=== PATIENT | female | born 1965 | race Caucasian/White ===

== ENCOUNTER 2017-06-18 10:23 | Inpatient (IN) | payer MEDICAID, OTHER ==
[~2017-06-18] VITALS: Ht 172.7 cm; Wt 62.9 kg
[2017-06-18] MEDS ORDERED: SODIUM CHLORIDE 0.9% 1,000 ML IVB ONE (10:51)
[2017-06-18 11:11] LABS: Basophils # (auto) 0 uL; Basophils % (auto) 0.7 % (0.0-2.0); Eosinophils # (auto) 0.1 uL; Eosinophils % (auto) 1.9 % (0.0-7.0); Hematocrit 44.4 % (36.0-46.0); Hemoglobin 14.9 g/dL (12.2-16.2); Lymphocytes # (auto) 2.2 uL; Lymphocytes % (auto) 42.1 % (10.0-50.0); Mean Corpuscular Hemoglobin 31.1 pg (28.0-32.0); Mean Corpuscular Hgb Conc. 33.6 g/dL (32.0-36.0); Mean Corpuscular Volume 92.5 fL (80.0-100.0); Monocytes # (auto) 0.5 uL; Monocytes % (auto) 8.7 % (0.0-12.0); Neutrophils # (auto) 2.5 uL; Neutrophils % (auto) 46.6 % (37.0-80.0); Platelet Count (auto) 196 10^3/uL (140-450); Red Cell Distribution Width 14.3 % (11.8-14.3); White Blood Cell 5.3 10^3/uL (4.4-10.8)
[2017-06-18 11:34] LABS: Magnesium 2.2 mg/dL (1.6-2.6)
[2017-06-18 11:39] LABS: Albumin 4.3 g/dL (3.4-5.0); BUN/Creatinine Ratio 13.3; Bilirubin, Total 0.4 mg/dL (0.2-1.0); Calcium 9.4 mg/dL (8.5-10.1); Potassium 4.1 mmol/L (3.5-5.1); Total Protein 8.6 g/dL (6.4-8.2)
[2017-06-18] MEDS: SODIUM CHLORIDE 0.9% 1,000 ML IV SCH ×2 (12:41→22:09)
[2017-06-18] MEDS ORDERED: ALBUTEROL SULF 2.5 MG/0.5ML(0.5%) NEB SOLN NEB PRN (12:45)
[2017-06-18] MEDS ORDERED: PROMETHAZINE HCL 25 MG/ML 1ML IV PRN (12:45)
[2017-06-18] MEDS ORDERED: HYDROcodone-ACET 5/325MG TAB PO PRN (12:45)
[2017-06-18] MEDS ORDERED: MORPHINE SULFATE 4 MG/ML SYR/VIAL IV PRN (12:45)
[2017-06-18] MEDS ORDERED: TEMAZEPAM 15 MG CAP PO PRN (12:45)
[2017-06-18] MEDS ORDERED: LORazepam 0.5 MG TAB PO PRN (12:45)
[2017-06-18] MEDS ORDERED: ACETAMINOPHEN 500 MG TAB PO PRN (12:45)
[2017-06-18 13:25] VITALS: BP 115/74
[2017-06-18] MEDS: FAMOTIDINE 20 MG TAB PO SCH ×2 (15:17→22:09)
[2017-06-18 17:00] VITALS: BP 100/59
[2017-06-18] MEDS ORDERED: ALPR1TAB2 PO (19:24)
[2017-06-18] MEDS ORDERED: ALBUAER3 IN (19:24)
[2017-06-18] MEDS ORDERED: ASPITAB34 PO (19:24)
[2017-06-18] MEDS ORDERED: VERMOX PO SCH (22:00)
[2017-06-18 22:40] VITALS: BP 102/66
[2017-06-19 05:28] VITALS: BP 110/64
[2017-06-19 06:48] LABS: Albumin 3.1 g/dL (3.4-5.0); Calcium 8.5 mg/dL (8.5-10.1); Potassium 4.3 mmol/L (3.5-5.1)
[2017-06-19 06:53] LABS: Cholesterol 96 mg/dL (< 200); HDL Cholesterol 34 mg/dL (40-59); LDL Cholesterol 57 mg/dL (< 100); Triglycerides 136 mg/dL (< 150)
[2017-06-19 06:57] LABS: BUN/Creatinine Ratio 9.9; Bilirubin, Total 0.4 mg/dL (0.2-1.0); Total Protein 6.8 g/dL (6.4-8.2)
[2017-06-19 08:00] VITALS: BP 112/58
[2017-06-19 09:00] VITALS: BP 112/58
[2017-06-19] MEDS ORDERED: PANTOPRAZOLE 40 MG TAB PO SCH (10:00)
[2017-06-19] MEDS: FAMOTIDINE 20 MG TAB PO SCH ×2 (10:02→21:13)
[2017-06-19] MEDS: SODIUM CHLORIDE 0.9% 1,000 ML IV SCH ×2 (10:05→18:35)
[2017-06-19 13:00] VITALS: BP 132/83
[2017-06-19 16:46] VITALS: BP 109/61
[2017-06-19 19:38] LABS: Urine Bacteria NONE SEEN /hpf (None Seen); Urine Blood Negative /uL (Negative); Urine Specific Gravity 1.005 (1.001-1.035); Urine WBC <1 /hpf (0 - 5)
[2017-06-19 19:52] LABS: Alcohol, Urine < 3.0 mg/dL (0-5); Amphetamine Screen, Urine POSITIVE (NEGATIVE); Barbiturate Scree,Urine NEGATIVE (NEGATIVE); Benzodiazephine Screen, Urine POSITIVE (NEGATIVE); Cannabinoid Screen, Urine POSITIVE (NEGATIVE); Cocaine Screen, Urine NEGATIVE (NEGATIVE); Opiate Scree,Urine NEGATIVE (NEGATIVE); Phencyclidine Screen, Urine NEGATIVE (NEGATIVE)
[2017-06-19 22:11] VITALS: BP 97/66
[2017-06-20] MEDS: SODIUM CHLORIDE 0.9% 1,000 ML IV SCH ×2 (05:02→14:41)
[2017-06-20 05:16] VITALS: BP 109/71
[2017-06-20 08:00] VITALS: BP 115/75
[2017-06-20 09:00] VITALS: BP 115/75
[2017-06-20] MEDS: FAMOTIDINE 20 MG TAB PO SCH ×2 (12:34→22:16)
[2017-06-20 12:54] VITALS: BP 118/73
[2017-06-20 17:41] VITALS: BP 97/61
[2017-06-20 21:16] VITALS: BP 100/68
[2017-06-21] MEDS: SODIUM CHLORIDE 0.9% 1,000 ML IV SCH (00:41)
[2017-06-21 05:18] VITALS: BP 104/56
[2017-06-21 07:56] VITALS: BP 100/60
[2017-06-21 08:46] VITALS: BP 100/60
[2017-06-21] MEDS: FAMOTIDINE 20 MG TAB PO SCH (09:30)
[2017-06-21 09:42] LABS: Hepatitis B Surface Antibody Positive
[2017-06-21 09:53] LABS: Hepatitis B Surface Antigen < 0.10 (Negative)
[2017-06-21 10:18] LABS: Hepatitis A Total Antibody Positive
[2017-06-21 12:08] VITALS: BP 106/72
[2017-06-21 13:35] LABS: Hepatitis C Antibody Negative (Negative)
[2017-06-21 13:44] LABS: Hepatitis B Core Total AB Positive
[2017-06-21 14:26] VITALS: BP 106/72
== END 2017-06-21 15:45 | disposition home or self-care (01) | DRG 724 ==
LOC: ER 10:23 → OVERFLOW 10:24 → CENTRAL 15:28
PROVIDERS: ADMIT Internal Medicine; ATTEND Internal Medicine
DX: B83.9 Helminthiasis, unspecified (principal); F15.10 Other stimulant abuse, uncomplicated; J44.9 Chronic obstructive pulmonary disease, unspecified; B87.9 Myiasis, unspecified; F17.210 Nicotine dependence, cigarettes, uncomplicated; R10.9 Unspecified abdominal pain; G43.909 Migraine, unspecified, not intractable, without status migrainosus; I70.90 Unspecified atherosclerosis; I70.8 Atherosclerosis of other arteries; K59.00 Constipation, unspecified; Z90.49 Acquired absence of other specified parts of digestive tract; Z98.51 Tubal ligation status
CPT/HCPCS: 36415; 74176; 76705; 80053; 80061; 80307; 81001; 82150; 83690; 83735; 85025; 85652; 86704; 86706; 86708; 86803; 87045; 87177; 87340; 87899; 93005; 94761

== ENCOUNTER 2018-09-20 01:59 | Inpatient (IN) | payer MEDICAID ==
[~2018-09-20] VITALS: Ht 167.6 cm; Wt 54.4 kg
[~2018-09-20 01:59] MED LIST: ALBUAER3 IN; ALPR1TAB2 PO; ASPITAB34 PO
[2018-09-20 02:45] LABS: Basophils # (auto) 0 uL; Basophils % (auto) 0.6 % (0.0-2.0); Eosinophils # (auto) 0.1 uL; Eosinophils % (auto) 1.7 % (0.0-7.0); Hemoglobin 14.7 g/dL (12.2-16.2); Lymphocytes # (auto) 2.3 uL; Lymphocytes % (auto) 31.7 % (10.0-50.0); Mean Corpuscular Hemoglobin 31.2 pg (28.0-32.0); Mean Corpuscular Hgb Conc. 34.1 g/dL (32.0-36.0); Mean Corpuscular Volume 91.4 fL (80.0-100.0); Monocytes # (auto) 0.6 uL; Monocytes % (auto) 7.9 % (0.0-12.0); Neutrophils # (auto) 4.2 uL; Neutrophils % (auto) 58.1 % (37.0-80.0); Platelet Count (auto) 211 10^3/uL (140-450); Red Blood Cells 4.71 10^6/uL (4.0-5.20); Red Cell Distribution Width 13.7 % (11.8-14.3); White Blood Cell 7.2 10^3/uL (4.4-10.8)
[2018-09-20 02:59] LABS: Salicylate 5.1 mg/dL (2.8-20.0)
[2018-09-20 03:02] LABS: Acetaminophen < 2.0 ug/mL (10-30)
[2018-09-20 03:44] LABS: Urine Bacteria FEW /hpf (None Seen); Urine Blood Negative /uL (Negative); Urine Mucus FEW (None Seen); Urine Specific Gravity 1.008 (1.001-1.035); Urine WBC 1 /hpf (0 - 5)
[2018-09-20 03:56] LABS: Alanine Aminotransferase 50 U/L (13-56); Albumin 3.6 g/dL (3.4-5.0); Anion Gap 9 (5-15); Aspartate Aminotransferase 25 U/L (15-37); BUN/Creatinine Ratio 14.3; Blood Alcohol < 3.0 mg/dL (0-5); Blood Urea Nitrogen 12 mg/dL (7-18); Calcium 8.8 mg/dL (8.5-10.1); Carbon Dioxide 26 mmol/L (21-32); Chloride 107 mmol/L (98-107); GFR African American 92 mL/min; GFR Non-African American 76 mL/min; Glucose 87 mg/dL (74-106); Potassium 3.7 mmol/L (3.5-5.1); Sodium 142 mmol/L (136-145)
[2018-09-20 03:58] LABS: Alcohol, Urine < 3.0 mg/dL (0-5); Amphetamine Screen, Urine POSITIVE (NEGATIVE); Barbiturate Scree,Urine NEGATIVE (NEGATIVE); Benzodiazephine Screen, Urine POSITIVE (NEGATIVE); Cannabinoid Screen, Urine POSITIVE (NEGATIVE); Cocaine Screen, Urine NEGATIVE (NEGATIVE); Opiate Scree,Urine NEGATIVE (NEGATIVE); Phencyclidine Screen, Urine NEGATIVE (NEGATIVE)
[2018-09-20 03:59] LABS: Alkaline Phosphatase 60 U/L (45-117); Bilirubin, Total 0.3 mg/dL (0.2-1.0); Total Protein 7.4 g/dL (6.4-8.2)
[2018-09-20] MEDS ORDERED: SODIUM CHLORIDE 0.9% 1,000 ML IV ONE (04:15)
[2018-09-20] MEDS ORDERED: MORPHINE SULF INJ 2 MG/ML SYRINGE 1ML IV PRN (07:30)
[2018-09-20] MEDS ORDERED: NITROGLYCERIN 0.4 MG SL TAB SL PRN (07:30)
[2018-09-20] MEDS ORDERED: ONDANSETRON HCL 4 MG/2 ML VIAL IV PRN (07:30)
[2018-09-20] MEDS ORDERED: ACETAMINOPHEN 325 MG TAB PO PRN (07:30)
[2018-09-20] MEDS: SODIUM CHLORIDE 0.9% 1,000 ML IV SCH ×2 (07:41→20:00)
[2018-09-20] MEDS: FAMOTIDINE 20 MG TAB PO SCH ×2 (10:00→22:00)
[2018-09-20] MEDS ORDERED: TEMAZEPAM 15 MG CAP PO ONE (20:45)
[2018-09-20] MEDS ORDERED: diphenhdrAMINE HCL 50 MG/1 ML VL IM ONE (21:00)
[2018-09-20] MEDS ORDERED: HALOPERIDOL LACTATE 5 MG/ML INJ VIAL IM ONE (21:00)
[2018-09-20] MEDS ORDERED: LORazepam 2MG/ML-1ML VIAL IV PRN (21:00)
[2018-09-20] MEDS ORDERED: LORazepam 2MG/ML-1ML VIAL IM ONE (21:00)
[2018-09-21] MEDS: SODIUM CHLORIDE 0.9% 1,000 ML IV SCH ×2 (08:30→22:42)
[2018-09-21] MEDS ORDERED: ABILIFY 5 MG PO SCH (10:00)
[2018-09-21] MEDS: FAMOTIDINE 20 MG TAB PO SCH ×2 (10:00→22:00)
[2018-09-21] MEDS ORDERED: OLANZapine 5 MG TAB ONE (10:26)
--- NOTE | 2018-09-21 18:32 | NUR ---
assessment Patient is a 53 year old female who is alert and oriented. Patient informed me prior to admission she lived home with friends and functioned independently. Patients PCP is Dr Schwarz. Patient informed me she is not suicidal. Patient informed me she was arguing with her boyfriend and was mad and upset, so she said she wanted to kill herself to upset her boyfriend. I informed patient she has a tele psych that recommended 51/50 and she has a 51/50 application. I informed patient that staff is working on Psych placement. Patient informed me she wants to walk out and does not want to be placed. I informed patient that we would call the taxi driver and inform them if she walks out. Patient verbalized understanding. Addendum: 09/21/18 at 1837 by Larisa SCHAEFFER Amended: Links added.
[2018-09-22] MEDS ORDERED: OLANZapine 5 MG TAB PO SCH ×2 (10:00)
[2018-09-22] MEDS: OLANZapine 5 MG TAB PO SCH (15:15)
[2018-09-23] MEDS: OLANZapine 5 MG TAB PO SCH (10:38)
--- NOTE | 2018-09-23 10:52 | NUR ---
Intake packet has been sent to the following facilities for possible placement. Les guzman [facility]/ Ros[facility] Rendon/ Rony Manzano/ Ronny Walker If any calls are made to you for transfer please alert us as wel as we will do the same Thank you, have a great day!!
[2018-09-24 00:15] VITALS: BP 147/81
== END 2018-09-20 20:00 | DRG 817 ==
LOC: EDBD 01:59 → ER 02:00 → TELE 02:01 → UNDODISIN 09-21 00:52
PROVIDERS: ADMIT Nurse Practitioner; ATTEND Internal Medicine Nephrology
DX: T42.4X2A Poisoning by benzodiazepines, intentional self-harm, initial encounter (principal); G92 Toxic encephalopathy; F12.90 Cannabis use, unspecified, uncomplicated; F17.210 Nicotine dependence, cigarettes, uncomplicated; I25.10 Atherosclerotic heart disease of native coronary artery without angina pectoris; J44.9 Chronic obstructive pulmonary disease, unspecified; F41.9 Anxiety disorder, unspecified; R45.851 Suicidal ideations; G43.909 Migraine, unspecified, not intractable, without status migrainosus; Z80.3 Family history of malignant neoplasm of breast; Z82.49 Family history of ischemic heart disease and other diseases of the circulatory system; Z90.49 Acquired absence of other specified parts of digestive tract; Z98.51 Tubal ligation status; Y92.89 Other specified places as the place of occurrence of the external cause
CPT/HCPCS: 36415; 36600; 70450; 80053; 80307; 80320; 80329; 81001; 82805; 83735; 85025; G0378